=== PATIENT | male | born 1940 | race Caucasian/White ===

== ENCOUNTER 2016-10-23 20:22 | Observation (INO) | payer OTHER ==
[~2016-10-23] VITALS: Ht 177.8 cm; Wt 81.7 kg
[~2016-10-23 20:22] MED LIST: ASPIRIN325 MG PO; CICLOPIROX NAIL L8 %; DOCUSATE CALCI240 MG PO; FLONASE AL50 MCG/ACT PO; GEMFIBROZIL600 MG PO; LEVOTHYROXINE100 MCG PO; METOPROLOL SUCC25 MG PO; MIRALAX EQUIVAL17 GM PO; OXAYDO5 MG PO; PROBIOTIC; RED YEAST RICE600 MG PO; TRIAMCINOLONE A0.13; VITAMIN D-31000 UNIT PO; XANAX1 MG PO; ZETIA10 MG PO; [UNRECOGNIZED DRUG - OTHER] PO
--- NOTE | 2016-10-23 23:22 | DIAGNOSTIC IMAGING REPORT ---
PROCEDURE: XR CHEST 1 VIEW INDICATION: CONFUSION TECHNIQUE: Portable AP view (2150 hours). COMPARISON: Compared to 01/23/2016. FINDINGS: Lungs are clear. Status post coronary bypass graft. Heart and mediastinum are of normal size. Thorax is normal. IMPRESSION: 1. Status post lower artery bypass graft. 2. Otherwise negative chest.
--- NOTE | 2016-10-23 23:27 | DIAGNOSTIC IMAGING REPORT ---
PROCEDURE: CT HEAD WITHOUT CONTRAST INDICATION: MENTAL STATUS CHANGE TECHNIQUE: Noncontrast axial images with sagittal and coronal reformations. COMPARISON: Compared to a head CT and 02/02/2016. FINDINGS: Mild motion. There are mild atrophic changes. Brain and ventricles are otherwise normal. No evidence of an acute process or hemorrhage. Sinuses and mastoids are normal. IMPRESSION: 1. Negative head CT. 2. Findings discussed with Dr. Gene Mustafa at [address] scans at this facility use dose modulation, iterative reconstruction, and/or weight-based dosing when appropriate to reduce radiation dose to as low as reasonably achievable.
--- NOTE | 2016-10-23 23:43 | ED ORDER SUMMARY ---
..... Patient: PARISA YANEZ OrderSheet [facility] VisitID: [id number] [address] [place] [address] 76y, M Registration Date/Time: 10/23/2016 ORDER SHEET Weight: 81.6 kg (estimated) Allergies: Codeine, Naproxen, Niacin, OxyContin, Statins GENERAL ORDERS: CBC w Diff Urgent (21:10/23/2016 Carol MCKENZIE) (Ack 21:07 Bay) (22:09 HSoule) CMP Urgent (21:10/23/2016 Carol MCKENZIE) (Ack 21:07 Bay) (22:09 HSoule) UA-Culture if indicated Urgent (21:10/23/2016 Carol MCKENZIE) (Ack 21:07 Bay) (23:20 SRedmond) Amylase Urgent (21:10/23/2016 Carol MCKENZIE) (Ack 21:07 Bay) (22:09 HSoule) Lipase Urgent (21:10/23/2016 Carol MCKENZIE) (Ack 21:07 Bay) (22:09 HSoule) Ethyl Alcohol Urgent (21:10/23/2016 Carol MCKENZIE) (Ack 21:07 Bay) (22:09 HSoule) Urine Drug Screen Urgent (21:10/23/2016 Carol MCKENZIE) (Ack 21:07 Bay) (23:20 SRedmond) Chest 1V Urgent (21:10/23/2016 Carol MCKENZIE) (Ack 21:21 Bay) (22:38 MCampbell) Higher Education Administrator (Continuous) (21:10/23/2016 Carol MCKENZIE) (21:20 HSoule) CPK Urgent (21:10/23/2016 Carol MCKENZIE) (Ack 21:21 Bay) (22:09 HSoule) Troponin-I Urgent (21:10/23/2016 Carol MCKENZIE) (Ack 21:21 Bay) (22:09 HSoule) Oxygen (2 L/min) (NC) (21:10/23/2016 Carol MCKENZIE) (21:20 HSoule) EKG - ER Stat (21:16 10/23/2016 Carol MCKENZIE) (Ack 21:21 SRedmond) (22:09 HSoule) Pulse oximeter (21:16 10/23/2016 Carol MCKENZIE) (21:20 HSoule) CT Head wo Cont Urgent (21:23 10/23/2016 Carol MCKENZIE) (Ack 21:24 SRedmond) (22:38 MCampbell) MEDICATION ORDERS: IV FLUIDS: IV NS : initial bolus 750 mL (1000 mL/hr), then 125 mL/hr for 4h (NOW); Urgent (21:05 10/23/2016 Carol MCKENZIE) (Ack 21:19 HSoule) (21:20 HSoule) IV Saline Lock (21:16 10/23/2016 Carol MCKENZIE) (21:19 HSoule) ORDER SHEET NOTES: [Electronically signed by Patricia Fuentes (03:57 10/24/2016)] [Electronically signed by Gene Mustafa MD (08:44 10/24/2016)] [Electronically locked/signed by Patricia Fuentes (03:57 10/24/2016)]
--- NOTE | 2016-10-23 23:43 | ED ORDER SUMMARY ---
..... Patient: PARISA YANEZ OrderSheet [facility] VisitID: [id number] [address] [place] [address] 76y, M Registration Date/Time: 10/23/2016 ORDER SHEET Weight: 81.6 kg (estimated) Allergies: Codeine, Naproxen, Niacin, OxyContin, Statins GENERAL ORDERS: CBC w Diff Urgent (21:10/23/2016 Carol MCKENZIE) (Ack 21:07 Bay) (22:09 HSoule) CMP Urgent (21:10/23/2016 Carol MCKENZIE) (Ack 21:07 Bay) (22:09 HSoule) UA-Culture if indicated Urgent (21:10/23/2016 Carol MCKENZIE) (Ack 21:07 Bay) (23:20 SRedmond) Amylase Urgent (21:10/23/2016 Carol MCKENZIE) (Ack 21:07 Bay) (22:09 HSoule) Lipase Urgent (21:10/23/2016 Carol MCKENZIE) (Ack 21:07 Bay) (22:09 HSoule) Ethyl Alcohol Urgent (21:10/23/2016 Carol MCKENZIE) (Ack 21:07 Bay) (22:09 HSoule) Urine Drug Screen Urgent (21:10/23/2016 Carol MCKENZIE) (Ack 21:07 Bay) (23:20 SRedmond) Chest 1V Urgent (21:10/23/2016 Carol MCKENZIE) (Ack 21:21 Bay) (22:38 MCampbell) Biometrics Technician (Continuous) (21:10/23/2016 Carol MCKENZIE) (21:20 HSoule) CPK Urgent (21:10/23/2016 Carol MCKENZIE) (Ack 21:21 Bay) (22:09 HSoule) Troponin-I Urgent (21:10/23/2016 Carol MCKENZIE) (Ack 21:21 Bay) (22:09 HSoule) Oxygen (2 L/min) (NC) (21:10/23/2016 Carol MCKENZIE) (21:20 HSoule) EKG - ER Stat (21:16 10/23/2016 Carol MCKENZIE) (Ack 21:21 SRedmond) (22:09 HSoule) Pulse oximeter (21:16 10/23/2016 Carol MCKENZIE) (21:20 HSoule) CT Head wo Cont Urgent (21:23 10/23/2016 Carol MCKENZIE) (Ack 21:24 SRedmond) (22:38 MCampbell) MEDICATION ORDERS: IV FLUIDS: IV NS : initial bolus 750 mL (1000 mL/hr), then 125 mL/hr for 4h (NOW); Urgent (21:05 10/23/2016 Carol MCKENZIE) (Ack 21:19 HSoule) (21:20 HSoule) IV Saline Lock (21:16 10/23/2016 Carol MCKENZIE) (21:19 HSoule) ORDER SHEET NOTES: [Electronically signed by Patricia Fuentes (03:57 10/24/2016)] [Electronically signed by Gnee Mustafa MD (08:44 10/24/2016)] [Electronically locked/signed by Patricia Fuentes (03:57 10/24/2016)]
--- NOTE | 2016-10-23 23:43 | ED CLINICAL REPORT ---
Clinical Report - Physicians/Mid Levels [facility] [address] [place] [address] 10/23/2016 20:24 Patient: PARISA YANEZ Time Seen: 21:00. Arrived- By ambulance. Historian- patient, EMS personnel and spouse. HISTORY OF PRESENT ILLNESS Chief Complaint: ACCIDENTAL INGESTION. This occurred today. Toxic symptoms present in ED with nausea, drowsiness and agitation. Single drug taken- Oxycodone. Alcohol consumption recently (beer). Last drink was just prior to arrival. The symptoms are described as severe. The patient has been confused. Similar symptoms previously: Once. Recent medical care: The patient was seen recently at this facility. Seen for similar symptoms. Diagnosis: drug overdose. REVIEW OF SYSTEMS No chills, fever, sweats, calf pain or chest pain. No cough, difficulty breathing, pedal edema, palpitations or abdominal pain. No black stools, bloody stools, diarrhea, nausea or vomiting. No urinary problems. The patient has had constipation (chronically). He has had similar symptoms previously. All systems otherwise negative, except as recorded above. PAST HISTORY Problems: Contusion. Changed Mental Status. Drug Poisoning. Coronary Artery Disease. PTSD. Hypertension. Gout. Arm fracture. Additional Surgeries: CABG. Medications: Aspirin Oral (Tablet 325 mg) 1 tablet, daily. Claritin Oral (Tablet 10 mg) 1 tablet, as needed. Colchicine Oral (Tablet 0.6 mg), 2x a day as needed. Gemfibrozil Oral (Tablet 600 mg), 2x a day. Levothyroxine Sodium Oral. Metoprolol Succinate ER Oral (Tablet Extended Release 24 Hour 25 mg) 1 tablet, daily. OxyCODONE HCl Oral (Tablet 30 mg), 4x a day as needed. Red Yeast Rice Oral (Capsule 600 mg) 1 capsule, 4 x daily. Vitamin c Oral (Tablet Chewable 500 mg) 1 tablet, daily. Vitamin D Oral (Capsule 1000 unit) 1 capsule, daily. Xanax Oral (Tablet 2 mg), as needed. Zetia Oral (Tablet 10 mg) 1 tablet, daily. Allergies: Codeine. Naproxen. Niacin. OxyContin. Statins. SOCIAL HISTORY Has place to stay (apartment). FAMILY HISTORY son with bipolar disorder. ADDITIONAL NOTES The nursing notes have been reviewed. PHYSICAL EXAM Vital Signs: 10/23/2016 20:30 BP: 120/62. HR: 68. RR: 20. O2 saturation: 98%. Temp: 98 F. Pain level now: 0/10. Have been reviewed. Appearance: The patient is somnolent, is confused and appears comfortable. ENT: TM's normal. Pharynx normal. Neck: Normal inspection. Neck supple. No meningeal signs or carotid bruit. CVS: Normal heart rate and rhythm. Heart sounds normal. Respiratory: No respiratory distress. Breath sounds normal. Abdomen: Soft and nontender. No organomegaly. Back: Normal inspection. LABS, X-RAYS, AND EKG EKG: Normal EKG. Rate: 60. EKG unchanged when compared with prior EKG. (20 Apr 2016). The study has been independently viewed by me. Chest X-ray: Sternotomy wires present. CT Head: No acute changes. The study was interpreted contemporaneously by me and discussed with the radiologist. Laboratory Tests: UA-Culture if indicated: (MARKUS: 10/23/2016 22:55) ( MsgRcvd 10/23/2016 23:15) Final results Test Result Flag Units (Reference) URINE COLOR YELLOW URINE APPEARANCE CLEAR URINE GLUCOSE NEGATIVE (NEGATIVE) URINE BILIRUBIN NEGATIVE (NEGATIVE) URINE KETONE NEGATIVE (NEGATIVE) URINE SPECIFIC GRAVITY 1.020 (1.010-1.030) URINE PH 6.0 (5.0-8.0) URINE PROTEIN NEGATIVE (NEGATIVE) URINE UROBILINOGEN 0.2 EU/dL (0.2-1.0) URINE NITRITE NEGATIVE (NEGATIVE) URINE BLOOD NEGATIVE (NEGATIVE) URINE LEUK ESTERASE NEGATIVE (NEGATIVE) URINE RBC 0-1 rbc/hpf (0-1) URINE WBC RARE wbc/hpf (0-1) URINE EPITHELIAL CELLS RARE EPI/hpf (0-5) URINE BACTERIA NONE SEEN (NONE SEEN) URINE COMMENT CULT NOT INDICATED URINE CULTURES ARE SET-UP BASED ON THE FOLLOWING CRITERIA:POSITIVE NITRITEPOSITIVE LEUKOCYTE ESTERASEGREATER THAN 10 WHITE BLOOD CELLSMODERATE (2+) OR GREATER BACTERIA CBC w Diff: (MARKUS: 10/23/2016 20:40) ( [facility] 10/23/2016 21:14) Final results Test Result Flag Units (Reference) WHITE BLOOD COUNT 5.7 K/uL (4.5-11.5) RED BLOOD COUNT 4.47 L M/uL (4.50-5.90) HEMOGLOBIN 13.3 L gm/dL (13.5-17.5) HEMATOCRIT 39.9 L % (41.0-53.0) MEAN CELL VOLUME 89 fL (80-100) MEAN CORPUSCULAR HGB 30 pg (26-34) MEAN CORPUSCULAR HGB CONC 33 g/dL (31-37) RED CELL DISTRIBUTION WIDTH 14.1 % (11.6-14.8) PLATELET COUNT 176 K/uL (150-400) NEUTROPHIL % 44.1 L % (50-75) LYMPH % 39.0 % (25-40) MONO % 9.7 % (3-14) EOSINOPHIL % 6.5 H % (0-4) BASOPHIL % 0.7 % (0-2) CPK: (MARKUS: 10/23/2016 21:07) ( [facility] 10/23/2016 22:03) Final results Test Result Flag Units (Reference) CPK 236 U/L (24-260) TROPONIN I <0.05 ng/mL (0.00-1.5) TROPONIN REFERENCE RANGE:<0.1 NEGATIVE0.1-1.5 INDETERMINANT>1.5 POSITIVE Urine Drug Screen: (MARKUS: 10/23/2016 22:55) ( [facility] 10/23/2016 23:13) Final results Test Result Flag Units (Reference) AMPHETAMINE/METHAMPHETAMINE NEGATIVE (NEGATIVE) BARBITURATE NEGATIVE (NEGATIVE) BENZODIAZEPINE POSITIVE H (NEGATIVE) CANNABINOID NEGATIVE (NEGATIVE) COCAINE NEGATIVE (NEGATIVE) ECSTASY NEGATIVE (NEGATIVE) METHADONE NEGATIVE (NEGATIVE) OPIATE POSITIVE H (NEGATIVE) The urine drug screen is a qualitative screening test fordrug overdose and abuse. All screen results should beconsidered as presumptive.Drugs screened for are as follows:BenzodiazepinesCocaineAmphetamines/MetamphetaminesTHC (Tetrahydrocannabinol)OpiatesBarbituratesEcstasyMethadonePositive results are unconfirmed. For confirmation, notifythe lab for the specimen to be sent to the reference lab.All confirmations must be performed by a differentmethodology.The ingestion of natural herbal and plant productscontaining Ephedra/Ephedra metabolites can produce in urineone or more substances capable of cross reacting withamphetamine/methamphetamine immunoassays. These testsprovide a preliminary result only. A more specificalternative chemical method must be used to obtain aconfirmed analytical result. CMP: (MARKUS: 10/23/2016 20:40) ( MsgRcvd 10/23/2016 21:28) Final results Test Result Flag Units (Reference) GLUCOSE 92 mg/dL (70-110) BUN 14 mg/dL (7-18) CREATININE 1.1 mg/dL (0.6-1.3) Estimated GFR >60 mL/min Estimated GFR- >60 mL/min Note: Persistent reduction over 3 months in eGFR<60 mL/min/1.73 m2 defines CKD. Patients with eGFR values>=60 mL/min/1.73 m2 may also have CKD if evidence ofpersistent proteinuria. Additional information may be foundat www.kidney.org. SODIUM 145 mmol/L (136-145) POTASSIUM 4.3 mmol/L (3.5-5.1) CHLORIDE 108 H mmol/L (98-107) CARBON DIOXIDE 27 mmol/L (21-32) CALCIUM 9.1 mg/dL (8.5-10.1) TOTAL PROTEIN 7.1 g/dL (6.4-8.2) ALBUMIN 3.8 g/dL (3.3-5.0) BILIRUBIN, TOTAL 0.4 mg/dL (0.0-1.0) ALKALINE PHOSPHATASE 67 U/L (46-116) AST (SGOT) 20 U/L (15-37) ALT (SGPT) 20 U/L (12-78) LIPASE 70 L U/L (73-393) AMYLASE 49 U/L (25-115) ETHYL ALCOHOL <3 L mg/dL (3-10) . PROGRESS AND PROCEDURES Course of Care: Patient is stable. Discussed case with hospitalist, (Otto). Reviewed test results and need for additional work-up. Agreed upon treatment plan, need for patient follow-up and decision to place in observation. Patient/family counseled. Old medical records reviewed. Disposition: Admitted. Observation. CLINICAL IMPRESSION Accidental multi-drug overdose with alprazolam and oxycodone. Changed mental status. (Electronically signed by Gene Mustafa MD 10/24/2016 8:44)
--- NOTE | 2016-10-23 23:43 | ED NURSING NOTES ---
Clinical Report - Nurses [facility] [address] [place] [address] 10/23/2016 20:24 Patient: PARISA YANEZ TRIAGE Triage time 20:Oct 23 2016. Acuity: LEVEL 2. Chief Complaint: DRUG OVERDOSE. SEPSIS SCREEN: Sepsis Screen: negative. Negative (no infection suspected/documented). GAVINO COMA SCORE: [place] Coma Scale: 13- eyes open spontaneously (4); best verbal response- inappropriate speech (3); best motor response- obeys commands (6). --20:34 Patricia Fuentes 20:30 10/23/16. BP: 120/62. HR: 68. RR: 20. O2 saturation: 98%. Temp: 98 F (oral). Pain level now: 0/10. --20:34 Patricia Fuentes. Weight: 81.6 kg estimated. Height/Length: 70 inches Estimated. BMI: 25.8. --20:32 Patricia Fuentes. Medications Aspirin Oral (Tablet 325 mg) 1 tablet, daily. Claritin Oral (Tablet 10 mg) 1 tablet, as needed. Colchicine Oral (Tablet 0.6 mg), 2x a day as needed. Gemfibrozil Oral (Tablet 600 mg), 2x a day. Levothyroxine Sodium Oral. Metoprolol Succinate ER Oral (Tablet Extended Release 24 Hour 25 mg) 1 tablet, daily. OxyCODONE HCl Oral (Tablet 30 mg), 4x a day as needed. Red Yeast Rice Oral (Capsule 600 mg) 1 capsule, 4 x daily. Vitamin c Oral (Tablet Chewable 500 mg) 1 tablet, daily. Vitamin D Oral (Capsule 1000 unit) 1 capsule, daily. Xanax Oral (Tablet 2 mg), as needed. Zetia Oral (Tablet 10 mg) 1 tablet, daily. --20:32 Patricia Fuentes. Allergies Codeine. Naproxen. Niacin. OxyContin. --20:32 Patricia Fuentes Statins. --20:32 Patricia Fuentes. History Arrived by EMS. Historian: EMS and patient. Unaccompanied. This occurred today. ( EMS report that the patients called because the patient was acting "strange" all day and she believed he took too many of his pain medications. Patient reportedly took 7 of his 30 mg oxycodone but EMS reports the was a poor historian and it was uncertain what time and how much was taken.). PAST MEDICAL HX: Immunizations: up-to-date. SOCIAL HX: Smoker - current status unknown. No alcohol use or drug use. No infectious disease exposure. ABUSE ASSESSMENT: No report of abuse. NUTRITIONAL RISK ASSESSMENT: The nutritional risk assessment revealed no deficiencies. FUNCTIONAL ASSESSMENT: Functional assessment: no impairments noted. LEARNING NEEDS ASSESSMENT: The learning needs assessment revealed no barriers. FALL RISK ASSESSMENT: Fall risk assessment completed. Risk factors identified include patient medications and age greater than 65 years. Fall interventions initiated. Call light in reach of patient. Instructed not to get up without assistance. SKIN INTEGRITY ASSESSMENT: Skin integrity risk assessment completed. No skin integrity risk identified. --20:34 Patricia Fuentes Treatment GRANITE WORKER: BP: 134 / 74. HR: 64. RR: 16. O2 saturation: 97 %. --20:36 Patricia Fuentes. PROBLEMS: Contusion. Changed Mental Status. Abnormal Test. Drug Poisoning. Coronary Artery Disease. PTSD. Hypertension. Gout. Arm fracture. --20:32 Patricia Fuentes. ADDITIONAL SURGERIES: CABG. --20:32 Patricia Fuentes. Interventions ID band on patient. To treatment room. --20:34 Patricia Fuentes. 20:26 10/23/2016 Site #1 started via IV in the right forearm with an 20g angiocath, with aseptic technique and good blood return. Saline lock flushed with 10 mL saline. --20:36 Patricia Fuentes. PHYSICAL ASSESSMENT To room via stretcher. Patient gowned. GENERAL / NEURO / PSYCH: The patient is disoriented and confused. The patient is disoriented to place, time and situation. Speech within normal limits. Pupillary exam: Right pupil 1mm and constricted. Left pupil: 1mm and constricted. RESPIRATORY: Respirations not labored. CVS: Normal sinus rhythm noted. SKIN: Skin is warm and dry. --20:35 Patricia Fuentes. NURSING PROGRESS NOTES Oxygen administered by nasal cannula at 2 liters. sailing officer, pulse oximeter and NIBP monitor placed on patient; monitor alarms on. Patient gowned. Reassurance given to the patient. Two patient identifiers checked. Call light placed in reach. Side rails up x 1. Bed placed in lowest position. Brakes of bed on. Patient ready for evaluation- chart flagged and ED physician notified. --20:35 Patricia Fuentes 21:19 10/23/2016 Started bag #1 1000 mL IV Fluids IV NS (Saline); at 999 mL/hr over 40 minute(s) via site #1 via IV pump. Allergies verified and confirmed 5 rights. IV patency established. IV site checked: no pain, redness, or swelling. IV flushed thoroughly pre- and post-medication administration. --21:20 Patricia Fuentes ( Provider at bedside). --21:35 Patricia Fuentes 21:34 10/23/16. BP: 136/64. HR: 65. RR: 20. O2 saturation: 99% on nasal cannula at 2 liters/minute. --21:35 Patricia Fuentes EKG time: (:Oct 23 2016). EKG was ordered, performed by a tech and shown to the ED physician. --21:35 Patricia Fuentes ( Patient encouraged to provide urine sample). --21:35 Patricia Fuentes Patient transported to radiology by stretcher with tech. (22:Oct 23 2016). Patient returned from radiology by stretcher with tech. (22:Oct 23 2016). --22:09 Patricia Fuentes EKG time: (2131 PM). EKG was ordered, performed by a tech and shown to the ED physician. --22:17 Lily Cotton 22:57 10/23/16. BP: 143/69. HR: 68. RR: 12. O2 saturation: 98% on nasal cannula at 2 liters/minute. --22:58 Patricia Fuentes In/out catheterization. Reason for indwelling catheter: retention. During procedure hand hygiene observed and sterile equipment and aseptic technique used. Return of 100 mL yellow-colored clear urine. He tolerated procedure well. Patient ID band checked for patient name and birthdate: patient confirmed. Instructions provided to collect clean catch urine and patient verbalized understanding. Catheterized urine collected with return of yellow-colored clear urine; sample sent to lab for urinalysis, culture and drug screen. Specimen labeled in the presence of the patient. --22:58 Patricia Fuentes 23:51 10/23/16. BP: 138/59. HR: 69. RR: 12. O2 saturation: 99% on nasal cannula at 2 liters/minute. End tidal CO2: 35 mmHg. --23:52 Patricia Fuentes 22:20 10/23/2016 IV Fluids IV NS via IV site #1 Rate Changed: bag #1 decreased to 125 mL/hr via IV pump. IV patency established. IV site checked: no pain, redness, or swelling. IV flushed thoroughly. Confirmed 5 Rights. --00:04 Patricia Fuentes 00:35 10/24/16. BP: 141/64. HR: 70. RR: 12. O2 saturation: 96% on nasal cannula at 2 liters/minute. --00:36 Patricia Fuentes. DISPOSITION / DISCHARGE 01:00 10/24/16. Condition at departure: stable. Admitted. Transported via stretcher by Jamn. Report was given to a nurse via a phone call. Report included patient's care, treatment, medications, reviewed medication reconcilliation, and condition (including any recent changes or anticipated changes). All questions were answered. Report was acknowledged and care was transferred. (Arie FALK). Bed obtained. Patient has no belongings. --03:35 Patricia Fuentes 01:00 10/24/2016 Site #[address] upon admission; patent, no pain and no signs of infection or infiltration. Converted to saline lock and flushed with 10 mL saline; flushes easily. --03:35 Patricia Fuentes 01:00 10/24/16. --03:57 Patricia Fuentes 01:00 10/24/16. BP: 139/64. HR: 68. RR: 12. O2 saturation: 98% on nasal cannula at 2 liters/minute. Temp: 97.8 F (oral). End tidal CO2: 33 mmHg. Pain level now: 0/10. --03:57 Patricia Fuentes. Locked/Released at 10/24/2016 3:57 by Patricia Fuentes,
--- NOTE | 2016-10-24 00:31 | Progress Note ---
Subjective General Admission History and Physical Examination Patient Name: Sonny Padilla Admission Date: October 24, 2016 Primary Care Provider: Carlos Velazquez D.O. Attending Physician: Rahul Menjivar M.D. Admitting Physician: Rahul Menjivar M.D. SUBJECTIVE Historian: Patient and family Reliability: Good Chief Complaint: Confusion, mental status changes, opiate overdose History of Present Illness: The patient is a 76-year-old white male with a significant past medical history of aortic valvular disease status post aortic valve replacement, coronary disease status post CABG 4, degenerative joint disease, generalized anxiety disorder, agoraphobia, PTSD, gout, who presented to [facility] emergency department on the day of admission with complaints of mental status changes, confusion, and suspected opiate overdose. The history of present illness began on the day prior to admission when the patient apparently accidentally took 6-7 of his OxyContin tablets. There was no history of suicidal ideation or suicide attempt. He is known to be lethargic with altered mental status following this. Secondary to the above, the patient presented to [facility] emergency department for further evaluation and treatment. Evaluation was consistent with opiate overdose and the patient was admitted for observation status. PAST MEDICAL HISTORY Illnesses: 1. Coronary artery disease-status post CABG 4 2. Aortic valve disease-status post aVR 3. Degenerative joint disease 4. Generalized anxiety disorder/panic disorder/agoraphobia 5. Hypercholesterolemia 6. Chronic constipation 7. Hypothyroidism Allergies: 1. Statins 2. OxyContin 3. Niacin 4. Allopurinol 5. Fenofibrate 6. Ambien 7. Naproxen 8. Methocarbamol Medications: Xanax 1 mg by mouth 3 times a day when necessary anxiety Colchicine 0.6 mg by mouth twice a day Lopid 600 mg by mouth twice a day Toprol-XL 25 mg by mouth daily. Oxycodone 30 mg by mouth every 4-6 hours when necessary for pain maximum 5 tablets per day Red Yeast Rice Oral (Capsule 600 mg) 1 capsule, 4 x daily. Vitamin C 1000 g by mouth daily Vitamin D 1000 units by mouth daily Zetia 10 mg by mouth daily Aspirin 325 mg by mouth daily Claritin Oral (Tablet 10 mg) 1 tablet, as needed. Synthroid 0.1 mg by mouth daily Flexeril 10 mg by mouth 3 times a day when necessary for muscle spasm MiraLAX 17 g in 8 ounces water daily Nasarel 25 g nasal spray twice a day Colace 250 mg by mouth twice a day Surgery: 1. CABG 4 2. Aortic valve replacement 3. Hernia repair bilaterally 4. Right knee surgery-type unknown Injuries: 1. Back injury Hospitalizations: 1. See above FAMILY HISTORY Parents: 1. Father, Chas, , 73, gout, cancer, 2. Mother, Meeta, , 73, myocardial infarction Siblings: 1. Chas, , 73, leukemia, coronary disease 2. Female, living, age unknown, bipolar disease Children: 1. None Other significant family history: None SOCIAL HISTORY 1. Marital Status: 2. Yazdanism: Buddhist-Baptist 3. Education: College, 2 years 4. 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 Occupational health exposures: Dust, asbestos, lead, loud noises, heavy lifting HABITS 1. Tobacco: No 2. Drugs: No 3. Alcohol: No 4. Caffeine: One cup caffeine 2-3 times per week HEALTH SUPERVISION Item/Test 1. Not reviewed IMMUNIZATIONS: 1. Pneumococcal: Unknown 2. Influenza: Unknown 3. Tetanus: Unknown REVIEW OF SYSTEMS Remarkable for those things stated in the history of present illness and past medical history. Seventeen point review of system completed with the following notable findings: General: Fatigue, back pain Skin: Areas of erythema associated with gouty tophi Musculoskeletal: Back pain, joint pain, muscle aches Neurological: lethargy, confusion Physical Exam General Appearance Cooperative, No acute distress, Slightly lethargic HEENT Atraumatic, PERRLA, EOMI, Moist mucous membranes Lungs Clear to auscultation, Normal air movement Neck Supple, No JVD Cardiovascular Regular rate and rhythm, Normal S1 and S2, Grade 2/6 systolic murmur Abdomen Normal bowel sounds, Soft, No tenderness Extremities No cyanosis, No clubbing, No edema, Gouty tophi present Neurological Cranial nerves intact, Strength 5/5 x4 ext's, No lateralizing signs Psych/Mental Status Confused, Lethargic LAB Results Laboratory Tests 10/23 10/23 10/23 2255 2107 2040 Chemistry Plasma Sodium (136 - 145 mmol/L) 145 Plasma Potassium (3.5 - 5.1 mmol/L) 4.3 Plasma Chloride (98 - 107 mmol/L) 108 CO2 (Enzymatic) (21 - 32 mmol/L) 27 BUN (7 - 18 mg/dL) 14 Creatinine (0.6 - 1.3 mg/dL) 1.1 Est GFR ( Amer) (mL/min) >60 Est GFR (Non-Af Amer) (mL/min) >60 Glucose (70 - 110 mg/dL) 92 Plasma Calcium (8.5 - 10.1 mg/dL) 9.1 Total Bilirubin (0.0 - 1.0 mg/dL) 0.4 AST (15 - 37 U/L) 20 ALT (12 - 78 U/L) 20 Alkaline Phosphatase (46 - 116 U/L) 67 Creatine Kinase (24 - 260 U/L) 236 Troponin (0.00 - 1.5 ng/mL) <0.05 Total Protein (6.4 - 8.2 g/dL) 7.1 Albumin (3.3 - 5.0 g/dL) 3.8 Amylase (25 - 115 U/L) 49 Lipase (73 - 393 U/L) 70 Hematology WBC (4.5 - 11.5 K/uL) 5.7 RBC (4.50 - 5.90 M/uL) 4.47 Hgb (13.5 - 17.5 gm/dL) 13.3 Hct (41.0 - 53.0 %) 39.9 MCV (80 - 100 fL) 89 MCH (26 - 34 pg) 30 RDW (11.6 - 14.8 %) 14.1 Neut % (Auto) (50 - 75 %) 44.1 Lymph % (Auto) (25 - 40 %) 39.0 [place] % (Auto) (3 - 14 %) 9.7 Eos % (Auto) (0 - 4 %) 6.5 Baso % (Auto) (0 - 2 %) 0.7 Plt Count, EDTA (150 - 400 K/uL) 176 PUBS MCHC (31 - 37 g/dL) 33 Toxicology Urine Opiates Screen (NEGATIVE) POSITIVE Urine Methadone Screen (NEGATIVE) NEGATIVE Ur Barbiturates Screen (NEGATIVE) NEGATIVE U Amphetamin/Meth Scrn (NEGATIVE) NEGATIVE MDMA (Ecstasy) Screen (NEGATIVE) NEGATIVE U Benzodiazepines Scrn (NEGATIVE) POSITIVE Urine Cocaine Screen (NEGATIVE) NEGATIVE U Cannabinoids Screen (NEGATIVE) NEGATIVE Plasma/Serum Ethyl Alc (3 - 10 mg/dL) <3 Urines Urine Color YELLOW Urine Appearance CLEAR Urine pH (5.0 - 8.0) 6.0 Ur Specific [place] (1.010 - 1.030) 1.020 Urine Protein (NEGATIVE) NEGATIVE Urine Ketones (NEGATIVE) NEGATIVE Urine Blood (NEGATIVE) NEGATIVE Urine Nitrite (NEGATIVE) NEGATIVE Urine Bilirubin (NEGATIVE) NEGATIVE Urine Urobilinogen (0.2 - 1.0 EU/dL) 0.2 Ur Leukocyte Esterase (NEGATIVE) NEGATIVE Urine RBC (0 - 1 rbc/hpf) 0-1 Urine WBC (0 - 1 wbc/hpf) RARE Ur Epithelial Cells (0 - 5 EPI/hpf) RARE Urine Bacteria (NONE SEEN) NONE SEEN Urine Glucose (NEGATIVE) NEGATIVE Urine Comment CULT NOT INDICATED Imaging Head CT IMPRESSION: 1. Negative head CT. 2. Findings discussed with Dr. Gene Mustafa at 2320 hours. Dictated by: NINA MAURICE MD D: PERRY;10/23/162326 Chest X-Ray IMPRESSION: 1. Status post lower artery bypass graft. 2. Otherwise negative chest. Dictated by: NINA MAURICE MD D: PERRY;10/23/162321 Assessment and Plan Problem List 1. Opiate overdose Status Acute Onset Date Unknown Plan -Patient presents with unintentional opiate overdose. -Monitor, patient slightly lethargic -Telemetry, pulse oximetry, end-tidal CO2 monitoring -Encourage curtailment and use of narcotics post discharge 2. Anxiety disorder Status Chronic Onset Date Unknown Plan -Patient with history of anxiety disorder -Hold antianxiety agents this p.m. secondary to narcotic overdose -Monitor 3. Hypothyroidism Status Chronic Onset Date Unknown Plan -Patient with history of hypothyroidism. -Continue Synthroid -Check TSH in a.m. Monitor 4. Mental status change Plan -Patient presents with findings of lethargy consistent with opiate overdose. -Slightly confused with slow responses -Monitor -CT scan of head unremarkable -Most likely secondary to opiate overdose. 5. Gout Status Chronic Onset Date Unknown Plan -Patient with history of gout -Allergic to allopurinol -Unclear as to other agents she is besides colchicine -Obtain uric acid level in a.m. 6. Anemia Status Acute Onset Date Unknown Plan -Patient with history of mild anemia -Check B12, folate, iron profile -Monitor 7. Chronic pain Status Chronic Onset Date Unknown Plan -Patient with history of chronic back pain -We'll encourage curtailment of narcotic analgesics post discharge Current status: Fair, unstable Anticipated discharge date: Anticipated discharge in 24 hours Anticipated discharge placement: Home Patient care time: Time spent in chart review, patient interview, physical exam, CPOE, and care documentation: 70 minutes Visit to patient today: 2 Complexity of care: High Initial patient evaluation: Emergency department E&M Codes Admission: Obsv-Comp/High/[id number]
[2016-10-24 01:30] VITALS: BP 146/77
[2016-10-24 05:17] VITALS: BP 146/77
[2016-10-24 07:24] VITALS: BP 143/74
--- NOTE | 2016-10-24 07:28 | Progress Note ---
Subjective General ADVANCED CARE PLAN History of Present Illness The patient is a 76-year-old white male with a significant past medical history of aortic valvular disease status post aortic valve replacement, coronary disease status post CABG 4, degenerative joint disease, generalized anxiety disorder, agoraphobia, PTSD, gout, who presented to [facility] emergency department on the day of admission with complaints of mental status changes, confusion, and suspected opiate overdose. For other history present illness, past medical history, family history, social history, review of systems, and admission physical examination please see the patient's history and physical examination and ER visit note in the patient's medical record. A discussion was undertaken with the patient regarding previous advance care arrangements/decisions. The following advanced directives were noted by the patient and discussed with me at the time of admission. ADVANCED DIRECTIVES: 1. Living well: Yes 2. POLST: Yes 3. CODE STATUS: FULL CODE 4. Durable Power Flight Nurse Health care: Yes 5. Donor card: Yes The patient has expressed interest in pursuing full resuscitative efforts in the event of a cardiopulmonary arrest The patient's wishes were documented in the chart and orders regarding the patient's wishes entered into the [employer] CPOE system. The "Advance Care Plan Document" was not distributed to patient to discuss with his family. Less than 30 minutes was spent in performing the above tasks and documentation of the patient's advanced care plan.
--- NOTE | 2016-10-24 07:28 | Progress Note ---
Subjective General ADVANCED CARE PLAN History of Present Illness The patient is a 76-year-old white male with a significant past medical history of aortic valvular disease status post aortic valve replacement, coronary disease status post CABG 4, degenerative joint disease, generalized anxiety disorder, agoraphobia, PTSD, gout, who presented to [facility] emergency department on the day of admission with complaints of mental status changes, confusion, and suspected opiate overdose. For other history present illness, past medical history, family history, social history, review of systems, and admission physical examination please see the patient's history and physical examination and ER visit note in the patient's medical record. A discussion was undertaken with the patient regarding previous advance care arrangements/decisions. The following advanced directives were noted by the patient and discussed with me at the time of admission. ADVANCED DIRECTIVES: 1. Living well: Yes 2. POLST: Yes 3. CODE STATUS: FULL CODE 4. Durable Power Clean Room Technician Health care: Yes 5. Donor card: Yes The patient has expressed interest in pursuing full resuscitative efforts in the event of a cardiopulmonary arrest The patient's wishes were documented in the chart and orders regarding the patient's wishes entered into the [employer] CPOE system. The "Advance Care Plan Document" was not distributed to patient to discuss with his family. Less than 30 minutes was spent in performing the above tasks and documentation of the patient's advanced care plan.
--- NOTE | 2016-10-24 08:45 | ED MED RECONCILIATION SUMMARY ---
Patient: PARISA YANEZ Medication Reconciliation Report [facility] VisitID: [id number] [address] [place] [address] 76y, M Registration Date/Time: 10/23/2016 Weight: 81.6 kg Height/Length: 70 in. BMI: 25.8 ALLERGIES: Codeine, Naproxen, Niacin, OxyContin, Statins The patient's Home Medications are listed below: THE FOLLOWING MEDICATIONS NEED TO BE RECONCILED: Aspirin Oral (325 mg) 1 tablet, daily Claritin Oral (10 mg) 1 tablet Colchicine Oral (0.6 mg), 2x a day Gemfibrozil Oral (600 mg), 2x a day Levothyroxine Sodium Oral Metoprolol Succinate ER Oral (25 mg) 1 tablet, daily OxyCODONE HCl Oral (30 mg), 4x a day Red Yeast Rice Oral (600 mg) 1 capsule, 4 x daily Vitamin c Oral (500 mg) 1 tablet, daily Vitamin D Oral (1000 unit) 1 capsule, daily Xanax Oral (2 mg) Zetia Oral (10 mg) 1 tablet, daily The source(s) of the original Home Medication information: Not obtained. The following Medications were given to the patient in the Emergency Department: IV NS IV Fluids bolus 0, then 999 mL/hr, administered: 10/23/2016 9:19:00 PM The following Medications were prescribed to the patient: None.
--- NOTE | 2016-10-24 08:45 | ED DISCHARGE INSTRUCTIONS ---
Patient: PARISA YANEZ General Instructions [facility] VisitID: [id number] [place] [address] 76y, M Registration Date/Time: 10/23/2016 Accidental multi-drug overdose with alprazolam and oxycodone. Changed mental status. ADDITIONAL INFORMATION Accidental Ingestion:Non-Toxic [Adult] You have been evaluated and treated for taking too much of a medicine or swallowing a chemical product. There is no sign of toxic effect at this time. It is very unlikely that any new symptoms will appear. As a safeguard, you must be alert for symptoms during the next 24 hours (see below). The exact symptom will depend on what was swallowed. Home Care: If LIQUID CHARCOAL was given to neutralize what was swallowed, it will cause a black color to the stools for 1-2 days. Usually, a laxative (sorbitol) is given with charcoal to speed the removal of any toxins from the intestinal tract. This may cause diarrhea for up to 24 hours. If no laxative was given with charcoal, you may get constipated. If this occurs, you may take an jrqo-yjn-nxrpwrg laxative such as Dulcolax pills or suppository. Prevention: Keep medicines, pesticides, and other household chemicals in their original containers. Clearly kailyn all harmful products if a different bottle is used. Follow Up with your doctor if all symptoms do not resolve within 24 hours or if constipation is not relieved by one or two doses of laxatives. Get Prompt Medical Attention if any of the following occur: Excess drowsiness or inability to be awakened Rapid heart beat, shakiness or seizure Fast breathing (over 25 breaths/minute) or slow breathing (less than 8 breaths/minute) Feeling shortness of breath Fever of 100.4F (38C) or higher, or as directed by your healthcare provider Vomiting or diarrhea for more than 24 hours Blood in stools or vomit (black or red color) Chest or abdominal pain Dizziness, weakness or fainting Opiate Overdose You have been treated for an overdose of opiates (such as a prescription pain medicine or heroin).Taking too much opiates is dangerous because they cause breathing to slow and possibly stop.If you stop breathing for more than 2-3 minutes, your heart will stop and you will . If your overdose was severe, you may have received an antidote called Narcan (naloxone). The antidote effect lasts for about 1-2 hours.If the opiate has not left your system by the time the Narcan wears off your symptoms may return (such as drowsiness and slow breathing). If you were addicted and physically dependent on opiates, then Narcan may cause withdrawal symptoms to appear immediately.These may consist of body aches, diarrhea, abdominal cramps, nausea, vomiting, runny nose, sneezing, sweating, yawning, restlessness, irritability, or trembling.These symptoms will go away as the Narcan wears off. Home Care Rest for the next [address] or operate any vehicle or dangerous equipment until all narcotic effects have worn off and you are no longer feeling sleepy or drowsy. If you were previously prescribed narcotic medicines for pain, do not take any more of this medicine for the next 6-8 hours, unless told otherwise. If narcotics or other drugs were swallowed, you may have been given liquid charcoal to neutralize those drugs.The charcoal may cause nausea and vomiting over the next few hours. It will also cause a black color to your stools for the next 1-2 days. Usually, a laxative is given with charcoal to speed the removal of any toxins from the intestinal tract. This may cause diarrhea for up to 24 hours. If no laxative was given, there may be a tendency toward constipation. If this occurs, you may take an lbrc-nia-ocigvoc laxative such as Dulcolax pills or suppository, or Milk of Magnesia. Follow Up with your doctor if all symptoms do not resolve within 24 hours or if constipation is not relieved after two doses of laxatives.If your overdose was related to a drug addiction, seek drug counseling. Consider a drug treatment program to help you break your habit. Return Promptly or contact your doctor if any of the following occur: Excess drowsiness or inability to be awakened Slow breathing under 8 breaths per minute Shortness of breath or cough with colored sputum Fever over 100.4F (38.0C) oral Redness, swelling or tenderness at the heroin injection site Feeling that you might harm yourself or another You have been given the following additional information: Overdose, Accidental (Adult) Overdose, Opiate (Electronically signed by Gene Mustafa MD 10/24/2016 8:44)
--- NOTE | 2016-10-24 08:45 | ED MAR SUMMARY ---
..... Medication Administration Record [facility] [address] [place] [address] Patient: PARISA YANEZ Visit ID: [id number] 76y, M Weight: 81.6 kg Height/Length: 70 in BMI: 25.8 ALLERGIES: Codeine, Naproxen, Niacin, OxyContin, Statins Start 21:19 10/23/2016 Patricia Fuentes, Medication Administered: IV NS (SALINE), Dose: IV Fluids over 40 minute(s), Rate: 999 mL/hr, Dispensed: 1000 mL bag, Site: #1 right forearm. Medication Ordered: IV NS : initial bolus 750 mL (1000 mL/hr), then 125 mL/hr for 4h (NOW); Urgent.
--- NOTE | 2016-10-24 08:45 | ED MED RECONCILIATION SUMMARY ---
Patient: PARISA YANEZ Medication Reconciliation Report [facility] VisitID: [id number] [address] [place] [address] 76y, M Registration Date/Time: 10/23/2016 Weight: 81.6 kg Height/Length: 70 in. BMI: 25.8 ALLERGIES: Codeine, Naproxen, Niacin, OxyContin, Statins The patient's Home Medications are listed below: THE FOLLOWING MEDICATIONS NEED TO BE RECONCILED: Aspirin Oral (325 mg) 1 tablet, daily Claritin Oral (10 mg) 1 tablet Colchicine Oral (0.6 mg), 2x a day Gemfibrozil Oral (600 mg), 2x a day Levothyroxine Sodium Oral Metoprolol Succinate ER Oral (25 mg) 1 tablet, daily OxyCODONE HCl Oral (30 mg), 4x a day Red Yeast Rice Oral (600 mg) 1 capsule, 4 x daily Vitamin c Oral (500 mg) 1 tablet, daily Vitamin D Oral (1000 unit) 1 capsule, daily Xanax Oral (2 mg) Zetia Oral (10 mg) 1 tablet, daily The source(s) of the original Home Medication information: Not obtained. The following Medications were given to the patient in the Emergency Department: IV NS IV Fluids bolus 0, then 999 mL/hr, administered: 10/23/2016 9:19:00 PM The following Medications were prescribed to the patient: None.
--- NOTE | 2016-10-24 08:45 | ED MAR SUMMARY ---
..... Medication Administration Record [facility] [address] [place] [address] Patient: PARISA YANEZ Visit ID: [id number] 76y, M Weight: 81.6 kg Height/Length: 70 in BMI: 25.8 ALLERGIES: Codeine, Naproxen, Niacin, OxyContin, Statins Start 21:19 10/23/2016 Patricia uFentes, Medication Administered: IV NS (SALINE), Dose: IV Fluids over 40 minute(s), Rate: 999 mL/hr, Dispensed: 1000 mL bag, Site: #1 right forearm. Medication Ordered: IV NS : initial bolus 750 mL (1000 mL/hr), then 125 mL/hr for 4h (NOW); Urgent.
[2016-10-24 11:07] VITALS: BP 147/63
[2016-10-24 14:02] VITALS: BP 141/68
--- NOTE | 2016-10-24 15:20 | Provider's Discharge Care Plan ---
Problem, Goal, Plan Problem List 1. Hypothyroidism Instructions: - no changes to your medication 2. Opiate overdose Instructions: - avoid taking opiate, additionally if you do take your xanax do not drink with it
--- NOTE | 2016-10-24 15:35 | Discharge Summary ---
Discharge Summary Report Admit Date 10/23/16 Discharge Date 10/24/16 Admission Diagnosis altered mental status Discharge Diagnosis opioid overdose Brief History please refer to H&P Hospital Course Patient was admitted for sedation and altered mental status. Patient tox screen was positive for opioids and benzodizapenes. Patients respiratory function was monitored and patient was observed for possible other factors. When none were seen patient was evaluated for any organic change that was occuring, however the patient has normal thyroid function, normal uric acid, and anemia work up. Patient was monitored throughout the day and patient had normal baseline acitvity with episodes of sedation. Patient did not have any evidence of neurological dysfunction. Patient will be discharged. He will follow up with his new pmd. He will not take any opioids and take xanax only if he has symptoms of anxiety. Patient willl otherwise resume all his other home medication. General Appearance Alert, Oriented X3, No acute distress HEENT PERRLA, Mucous membran moist/pink Lungs Normal air movement Cardiovascular Normal S1, Normal S2 Abdomen Soft, No tenderness Pelvic No masses Skin No Breakdown Neurological Normal speech, Normal tone, Sensation intact Lab/Imaging Laboratory Tests 10/23 10/23 10/23 10/24 2040 2107 2255 0605 Chemistry Plasma Sodium (136 - 145 mmol/L) 145 Plasma Potassium (3.5 - 5.1 mmol/L) 4.3 Plasma Chloride (98 - 107 mmol/L) 108 CO2 (Enzymatic) (21 - 32 mmol/L) 27 BUN (7 - 18 mg/dL) 14 Creatinine (0.6 - 1.3 mg/dL) 1.1 Est GFR ( Amer) (mL/min) >60 Est GFR (Non-Af Amer) (mL/min) >60 Glucose (70 - 110 mg/dL) 92 Plasma Calcium (8.5 - 10.1 mg/dL) 9.1 Total Bilirubin (0.0 - 1.0 mg/dL) 0.4 AST (15 - 37 U/L) 20 ALT (12 - 78 U/L) 20 Alkaline Phosphatase (46 - 116 U/L) 67 Creatine Kinase (24 - 260 U/L) 236 Troponin (0.00 - 1.5 ng/mL) <0.05 Total Protein (6.4 - 8.2 g/dL) 7.1 Albumin (3.3 - 5.0 g/dL) 3.8 Amylase (25 - 115 U/L) 49 Lipase (73 - 393 U/L) 70 Vitamin B12 (211 - 946 pg/mL) 225 Folate (>3.0 ng/mL) 12.7 Hematology WBC (4.5 - 11.5 K/uL) 5.7 RBC (4.50 - 5.90 M/uL) 4.47 Hgb (13.5 - 17.5 gm/dL) 13.3 Hct (41.0 - 53.0 %) 39.9 MCV (80 - 100 fL) 89 MCH (26 - 34 pg) 30 RDW (11.6 - 14.8 %) 14.1 Neut % (Auto) (50 - 75 %) 44.1 Lymph % (Auto) (25 - 40 %) 39.0 [place] % (Auto) (3 - 14 %) 9.7 Eos % (Auto) (0 - 4 %) 6.5 Baso % (Auto) (0 - 2 %) 0.7 Plt Count, EDTA (150 - 400 K/uL) 176 PUBS MCHC (31 - 37 g/dL) 33 Toxicology Urine Opiates Screen (NEGATIVE) POSITIVE Urine Methadone Screen (NEGATIVE) NEGATIVE Ur Barbiturates Screen (NEGATIVE) NEGATIVE U Amphetamin/Meth Scrn (NEGATIVE) NEGATIVE MDMA (Ecstasy) Screen (NEGATIVE) NEGATIVE U Benzodiazepines Scrn (NEGATIVE) POSITIVE Urine Cocaine Screen (NEGATIVE) NEGATIVE U Cannabinoids Screen (NEGATIVE) NEGATIVE Plasma/Serum Ethyl Alc (3 - 10 mg/dL) <3 Urines Urine Color YELLOW Urine Appearance CLEAR Urine pH (5.0 - 8.0) 6.0 Ur Specific [place] (1.010 - 1.030) 1.020 Urine Protein (NEGATIVE) NEGATIVE Urine Ketones (NEGATIVE) NEGATIVE Urine Blood (NEGATIVE) NEGATIVE Urine Nitrite (NEGATIVE) NEGATIVE Urine Bilirubin (NEGATIVE) NEGATIVE Urine Urobilinogen (0.2 - 1.0 EU/dL) 0.2 Ur Leukocyte Esterase (NEGATIVE) NEGATIVE Urine RBC (0 - 1 rbc/hpf) 0-1 Urine WBC (0 - 1 wbc/hpf) RARE Ur Epithelial Cells (0 - 5 EPI/hpf) RARE Urine Bacteria (NONE SEEN) NONE SEEN Urine Glucose (NEGATIVE) NEGATIVE Urine Comment CULT NOT INDICATED 10/24 10/24 10/24 0605 0605 0605 Chemistry Uric Acid (2.6 - 7.2 mg/dL) 6.7 Iron (35 - 150 ug/dL) 69 TIBC (260 - 445 ug/dL) 281 Iron Saturation (15 - 50 %) 25 TSH 3rd Generation (0.30 - 3.74 uIU/mL) 2.990 Discharge Instructions/Meds - avoid opioids unless cleared by your new pmd - do not mix alcohol with your medication - resume all your other home medications
== END 2016-10-24 15:55 | disposition home or self-care (01) ==
LOC: ED SRH 20:22 → TRANS SRH 23:51 → ACUTE2 SRH 10-24 01:02
PROVIDERS: ADMIT Internal Medicine
DX: T40.2X1A Poisoning by other opioids, accidental (unintentional), initial encounter (principal); R41.0 Disorientation, unspecified; F41.1 Generalized anxiety disorder; F40.01 Agoraphobia with panic disorder; F43.10 Post-traumatic stress disorder, unspecified; G89.29 Other chronic pain; M54.9 Dorsalgia, unspecified; E03.9 Hypothyroidism, unspecified; D64.9 Anemia, unspecified
CPT/HCPCS: 29230; 29251; 90004; 90100; 90616; 91504; 91505; 92010; 92235; 92530; 92610; 92668; 92670; 92760; 92761; 92762; 92763; 92764; 92765; 92766; 92767; 92860; 93140; 95059

== ENCOUNTER 2016-12-20 16:49 | Emergency (ER) | payer OTHER ==
--- NOTE | 2016-12-20 17:19 | ED CLINICAL REPORT ---
Clinical Report - Physicians/Mid Levels [facility] [address] [place] [address] 12/20/2016 16:50 Patient: PARISA YANEZ Time Seen: 1655. Arrived- By private vehicle. Historian- patient. HISTORY OF PRESENT ILLNESS Chief Complaint: BLEEDING FROM EAR left. Modifying factors. Not worsened by anything. Not relieved by anything. This started today. It was abrupt in onset and has been constant but is gone now. Is now gone. Onset during ear cleaning. Location- left ear. The patient has not had pain. The patient has had ear trauma (cleaned ears today). No recent barotrauma or tinnitus. (no fever). Similar symptoms previously: None. Recent medical care: Not recently seen/assessed. REVIEW OF SYSTEMS No fever, difficulty breathing, chest pain, headache or nausea. No vomiting or skin rash. All systems otherwise negative, except as recorded above. PAST HISTORY See nurses notes. Medications: Colace Oral. Zetia Oral (Tablet 10 mg) 1 tablet. Red Yeast Rice Oral. Flunisolide Nasal. Nitroglycerin Sublingual. MiraLax Oral. Ascorbic Acid Oral. Aspirin Oral (Tablet 325 mg) 1 tablet, daily. Metoprolol Succinate ER Oral (Tablet Extended Release 24 Hour 25 mg) 1 tablet, daily. Cholecalciferol Oral. Colchicine Oral 0.6 mg. Gemfibrozil Oral 600 mg. Levothyroxine Sodium Oral 100 mcg. Naloxone HCl Injection 1 spray. OxyCODONE HCl Oral 30 mg, 4x a day. ALPRAZolam Oral 1 mg, 3x a day. Allergies: Allopurinol. Codeine. Fenofibrate. Monosodium Glutamate. Naproxen. Niacin. OxyContin. Robaxin. Statins. Uloric. Zolpidem. SOCIAL HISTORY Never smoker. Not exposed to second-hand smoke at home. No alcohol use or drug use. No recent travel. Is a local resident. ADDITIONAL NOTES The nursing notes have been reviewed. PHYSICAL EXAM Vital Signs: 12/20/2016 16:58 BP: 129/65. HR: 58. RR: 14. O2 saturation: 98%. Temp: 97.5 F. Pain level now: 0/10. Appearance: Alert. No acute distress. Eyes: Eyes normal inspection. (Conjunctiva are pink). ENT: (tympanic membranes are normal bilaterally with normal architecture and normal cone of light. The left external auditory canal has dried blood appears to be recent. No active bleeding. No foreign body. No signs of infection. Right external auditory canal is atraumatic and normal appearance. No signs of infection. No erythema. Nopurulent discharge. No pain with palpation of the tragus. No proptosis of the ear. No overlying cellulitis of the mastoid process. No mastoid tenderness.). Nose: Nose normal. Neck: Normal inspection. Neck supple. CVS: Normal heart rate and rhythm. Heart sounds normal. Respiratory: No respiratory distress. Breath sounds normal. Abdomen: Soft and nontender. : Normal genitalia. Skin: Skin warm and dry. Normal skin color. No rash. Normal skin turgor. No pallor. PROGRESS AND PROCEDURES Course of Care: the patient is a pleasant 76-year-old male presenting for reduction of left-sided ear bleeding. Patient with recent trauma from ear cleaning. Recommended patient no longer using Q-tips orrigid instrument since the year for cleaning. Recommended other [id number] measures to clean the ear. No signs of bleeding at this time. No signs of infection. Bleeding that was there patient in minimal. Do not fill workup needed for hemoglobin and hematocrit at this time. No signs of anemia at this time. Vital signs are unremarkable. I discussion with the patient in regards to ear cleaning as well as his workup in the emergency department and diagnosis, home care, follow-up, and return precautions, in particular wound infection precautions. All questions have been answered. The patient expressed understanding of these instructions and was agreeable to them. Patient is accompanied by caregiver. Information will be passed on through the patient's caregiveras well. Disposition: Discharged. Condition: good. CLINICAL IMPRESSION Single superficial abrasion. (left ear canal). Acute seasonal allergic rhinitis. INSTRUCTIONS Warnings: GENERAL WARNINGS: Return or contact your physician immediately if your condition worsens or changes unexpectedly, if not improving as expected, or if other problems arise. Specifically return if pain, vomiting, bleeding, breathing difficulty or fever. Your Current Medications: CONTINUE TAKING THE FOLLOWING MEDICATIONS: ALPRAZolam Oral : 1 mg 3x a day. Ascorbic Acid Oral. Aspirin Oral : Tablet 325 mg, 1 tablet daily. Cholecalciferol Oral. Colace Oral. Colchicine Oral : 0.6 mg. Flunisolide Nasal. Gemfibrozil Oral : 600 mg. Levothyroxine Sodium Oral : 100 mcg. Metoprolol Succinate ER Oral : Tablet Extended Release 24 Hour 25 mg, 1 tablet daily. MiraLax Oral. Naloxone HCl Injection : 1 spray. Nitroglycerin Sublingual. OxyCODONE HCl Oral : 30 mg 4x a day. Red Yeast Rice Oral. Zetia Oral : Tablet 10 mg, 1 tablet. Prescription Medications: Hydroxyzine 50 mg: take 1 orally every 8 hours. Dispense thirty (30). No refill. (as needed for allergy symptoms) OTC Medications: Claritin (available over the counter): take according to label instructions. Follow-up: Return to the emergency department as needed. Follow up with your doctor in three days. Reason for referral: recheck today's concerns. Summary of care provided to patient via paper. Screening today revealed the patient's blood pressure to be in the normal range. The patient should follow up with a primary care provider for blood pressure management. Understanding of the discharge instructions verbalized by patient. (Electronically signed by Carlos Lerma Dr. 12/23/2016 9:33)
--- NOTE | 2016-12-20 17:19 | ED NURSING NOTES ---
Clinical Report - Nurses [facility] [address] [place] [address] 12/20/2016 16:50 Patient: PARISA YANEZ TRIAGE Triage time 16:58 Tobi 2016. Acuity: LEVEL 5. Chief Complaint: SINUS CONGESTION and (Left ear bleeding). 17:11 12/20/16. Alert. No acute distress. SEPSIS SCREEN: Sepsis Screen. Negative (no infection suspected/documented). --17:11 Mary Brock 16:58 12/20/16. BP: 129/65. HR: 58. RR: 14. O2 saturation: 98%. Temp: 97.5 F. Pain level now: 0/10. --17:11 Mary Brock. Weight: 78 kg stated. Height/Length: 75 inches Measured. BMI: 21.5. --17:10 Mary Brock. Medications ALPRAZolam Oral 1 mg, 3x a day. --17:05 Mary Brock OxyCODONE HCl Oral 30 mg, 4x a day. --17:05 Mary Brock Naloxone HCl Injection 1 spray. --17:06 Mary Brock Levothyroxine Sodium Oral 100 mcg. --17:06 Mary Brock Gemfibrozil Oral 600 mg. --17:06 Mary Brock Colchicine Oral 0.6 mg. --17:06 Mary Brock Cholecalciferol Oral. --17:06 Mary Brock Aspirin Oral (Tablet 325 mg) 1 tablet, daily. Metoprolol Succinate ER Oral (Tablet Extended Release 24 Hour 25 mg) 1 tablet, daily. --17:07 Mary Brock Ascorbic Acid Oral. --17:08 Mary Brock MiraLax Oral. --17:08 Mary Brock Nitroglycerin Sublingual. --17:08 Mary Brock Flunisolide Nasal. --17:08 Mary Brock Red Yeast Rice Oral. --17:08 Mary Brock Zetia Oral (Tablet 10 mg) 1 tablet. --17:09 Mary Brock Colace Oral. --17:09 Mary Brock. Medication/allergy information source: the patient. --17:11 Mary Brock. Allergies Codeine. Naproxen. Niacin. OxyContin. Statins. --17:03 Mary Brock Allopurinol. --17:03 Mary Brock Fenofibrate. --17:03 Mary Brock Robaxin. --17:04 Mary Brock Monosodium Glutamate. --17:04 Mary Brock Uloric. --17:04 Mary Brock Zolpidem. --17:04 Mary Brock. History Arrived by private vehicle. Historian: patient. Accompanied by (Domestic Partner, Etc). This started yesterday. ( Pt reports bleeding from L ear. Reports recent sinus infection. Never has happened before. Cleaned ear with Q-tip yesterday.). He has had mild left-sided ear drainage (bloody). No headache. 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 PAST MEDICAL HX: Immunizations: up-to-date. SOCIAL HX: Former smoker, end date 1976. No alcohol use or drug use. FALL RISK ASSESSMENT: Fall risk assessment completed. No fall risk identified. NUTRITIONAL RISK ASSESSMENT: The nutritional risk assessment revealed no deficiencies. FUNCTIONAL ASSESSMENT: Functional assessment: no impairments noted. LEARNING NEEDS ASSESSMENT: The learning needs assessment revealed no barriers. SKIN INTEGRITY ASSESSMENT: Skin integrity risk assessment completed. No skin integrity risk identified. --17:11 Mary Brock. PROBLEMS: Pulmonary Hypertension. Aortic root dilatation. Contusion. Changed Mental Status. Abnormal Test. Drug Poisoning. Coronary Artery Disease. PTSD. Hypertension. Gout. Arm fracture. --17:10 Mary Brock. ADDITIONAL SURGERIES: CABG. --17:10 Mary Brock. Assessment The patient states feels the same. --17:11 Mary Brock. Interventions ID band on patient. --17:11 Mary Brock. PHYSICAL ASSESSMENT 17:11 12/20/16. Ambulatory to room. GENERAL / NEURO / PSYCH: Alert. Appears in no acute distress. HEENT: No facial asymmetry noted. Pupils equal, round and reactive to light. Right ear within normal limits. Left ear within normal limits. RESPIRATORY: Respirations not labored. CVS: Capillary refill less than 2 seconds. SKIN: Skin is warm and dry. --17:11 Mary Brock. NURSING PROGRESS NOTES 17:12 12/20/16. The plan of care for this patient has been created. Head of bed elevated. Reassurance given. Two patient identifiers checked. Call light placed in reach. Side rails up x 1. Bed placed in lowest position. Brakes of bed on. Patient ready for evaluation- chart flagged and ED physician notified. --17:12 Mary Brock. DISPOSITION / DISCHARGE 17:25 12/20/16. Departure time: 17:Dec 20 2016. Condition at departure: unchanged. The goals identified in the patient's plan of care were met. No learning barriers present. Discharge instructions provided and reviewed with the patient and family. Reviewed warnings. Reviewed medication(s) (Claritan, Hydroxyzine). Treatments reviewed. Reviewed referral to a primary care physician (F/u in 3 days). Patient and family verbalized understanding. Written instructions provided in [place]. The patient was discharged by the physician. He was discharged home and accompanied by family. He left the Emergency Department ambulatory and via private vehicle. Family member driving. FALL RISK ASSESSMENT: Fall risk assessment completed. No fall risk identified. --17:25 Mary Brock 17:24 12/20/16. BP: deferred. HR: deferred. RR: deferred. O2 saturation: deferred. Temp: deferred. Pain level now deferred. --17:25 Mary Brock. Locked/Released at 12/20/2016 18:17 by Mary Brock,
--- NOTE | 2016-12-20 17:19 | ED NURSING NOTES ---
Clinical Report - Nurses [facility] [address] [place] [address] 12/20/2016 16:50 Patient: PARISA YANEZ TRIAGE Triage time 16:58 Tobi 2016. Acuity: LEVEL 5. Chief Complaint: SINUS CONGESTION and (Left ear bleeding). 17:11 12/20/16. Alert. No acute distress. SEPSIS SCREEN: Sepsis Screen. Negative (no infection suspected/documented). --17:11 Mary Brock 16:58 12/20/16. BP: 129/65. HR: 58. RR: 14. O2 saturation: 98%. Temp: 97.5 F. Pain level now: 0/10. --17:11 Mayr Brock. Weight: 78 kg stated. Height/Length: 75 inches Measured. BMI: 21.5. --17:10 Mary Brock. Medications ALPRAZolam Oral 1 mg, 3x a day. --17:05 Mary Brock OxyCODONE HCl Oral 30 mg, 4x a day. --17:05 Mary Brock Naloxone HCl Injection 1 spray. --17:06 Mary Brock Levothyroxine Sodium Oral 100 mcg. --17:06 Mayr Brock Gemfibrozil Oral 600 mg. --17:06 Mary Brock Colchicine Oral 0.6 mg. --17:06 Mary Brock Cholecalciferol Oral. --17:06 Mary Brock Aspirin Oral (Tablet 325 mg) 1 tablet, daily. Metoprolol Succinate ER Oral (Tablet Extended Release 24 Hour 25 mg) 1 tablet, daily. --17:07 Mary Brock Ascorbic Acid Oral. --17:08 Mary Brock MiraLax Oral. --17:08 Mary Brock Nitroglycerin Sublingual. --17:08 Mary Brock Flunisolide Nasal. --17:08 Mary Brock Red Yeast Rice Oral. --17:08 Mary Brock Zetia Oral (Tablet 10 mg) 1 tablet. --17:09 Mary Brock Colace Oral. --17:09 Mary Brock. Medication/allergy information source: the patient. --17:11 Mary Brock. Allergies Codeine. Naproxen. Niacin. OxyContin. Statins. --17:03 Mary Brock Allopurinol. --17:03 Mary Brock Fenofibrate. --17:03 Mary Brock Robaxin. --17:04 Mary Brock Monosodium Glutamate. --17:04 Mary Brock Uloric. --17:04 Mary Brock Zolpidem. --17:04 Mary Brock. History Arrived by private vehicle. Historian: patient. Accompanied by (Domestic Partner, Etc). This started yesterday. ( Pt reports bleeding from L ear. Reports recent sinus infection. Never has happened before. Cleaned ear with Q-tip yesterday.). He has had mild left-sided ear drainage (bloody). No headache. 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 PAST MEDICAL HX: Immunizations: up-to-date. SOCIAL HX: Former smoker, end date 1976. No alcohol use or drug use. FALL RISK ASSESSMENT: Fall risk assessment completed. No fall risk identified. NUTRITIONAL RISK ASSESSMENT: The nutritional risk assessment revealed no deficiencies. FUNCTIONAL ASSESSMENT: Functional assessment: no impairments noted. LEARNING NEEDS ASSESSMENT: The learning needs assessment revealed no barriers. SKIN INTEGRITY ASSESSMENT: Skin integrity risk assessment completed. No skin integrity risk identified. --17:11 Mary Brock. PROBLEMS: Pulmonary Hypertension. Aortic root dilatation. Contusion. Changed Mental Status. Abnormal Test. Drug Poisoning. Coronary Artery Disease. PTSD. Hypertension. Gout. Arm fracture. --17:10 Mary Brock. ADDITIONAL SURGERIES: CABG. --17:10 Mary Brock. Assessment The patient states feels the same. --17:11 Mary Brock. Interventions ID band on patient. --17:11 Mary Brock. PHYSICAL ASSESSMENT 17:11 12/20/16. Ambulatory to room. GENERAL / NEURO / PSYCH: Alert. Appears in no acute distress. HEENT: No facial asymmetry noted. Pupils equal, round and reactive to light. Right ear within normal limits. Left ear within normal limits. RESPIRATORY: Respirations not labored. CVS: Capillary refill less than 2 seconds. SKIN: Skin is warm and dry. --17:11 Mary Brock. NURSING PROGRESS NOTES 17:12 12/20/16. The plan of care for this patient has been created. Head of bed elevated. Reassurance given. Two patient identifiers checked. Call light placed in reach. Side rails up x 1. Bed placed in lowest position. Brakes of bed on. Patient ready for evaluation- chart flagged and ED physician notified. --17:12 Mary Brock. DISPOSITION / DISCHARGE 17:25 12/20/16. Departure time: 17:Dec 20 2016. Condition at departure: unchanged. The goals identified in the patient's plan of care were met. No learning barriers present. Discharge instructions provided and reviewed with the patient and family. Reviewed warnings. Reviewed medication(s) (Claritan, Hydroxyzine). Treatments reviewed. Reviewed referral to a primary care physician (F/u in 3 days). Patient and family verbalized understanding. Written instructions provided in [place]. The patient was discharged by the physician. He was discharged home and accompanied by family. He left the Emergency Department ambulatory and via private vehicle. Family member driving. FALL RISK ASSESSMENT: Fall risk assessment completed. No fall risk identified. --17:25 Mary Brock 17:24 12/20/16. BP: deferred. HR: deferred. RR: deferred. O2 saturation: deferred. Temp: deferred. Pain level now deferred. --17:25 Mary Brock. Locked/Released at 12/20/2016 18:17 by Mary Brock,
--- NOTE | 2016-12-23 09:34 | ED MAR SUMMARY ---
..... Medication Administration Record [facility] [address] [place] [id number] Patient: PARISA YANEZ Visit ID: [id number], M Weight: 78.0 kg Height/Length: 75 in BMI: 21.5 ALLERGIES: Zolpidem, Uloric, Monosodium Glutamate, Robaxin, Fenofibrate, Allopurinol, Codeine, Naproxen, Niacin, OxyContin, Statins
--- NOTE | 2016-12-23 09:34 | ED DISCHARGE INSTRUCTIONS ---
Patient: PARISA YANEZ General Instructions [facility] VisitID: [id number] [place] [address] 76y, M Registration Date/Time: 12/20/2016 Single superficial abrasion. (left ear canal). Acute seasonal allergic rhinitis. INSTRUCTIONS Warnings: GENERAL WARNINGS: Return or contact your physician immediately if your condition worsens or changes unexpectedly, if not improving as expected, or if other problems arise. Specifically return if pain, vomiting, bleeding, breathing difficulty or fever. Your Current Medications: CONTINUE TAKING THE FOLLOWING MEDICATIONS: ALPRAZolam Oral : 1 mg 3x a day. Ascorbic Acid Oral. Aspirin Oral : Tablet 325 mg, 1 tablet daily. Cholecalciferol Oral. Colace Oral. Colchicine Oral : 0.6 mg. Flunisolide Nasal. Gemfibrozil Oral : 600 mg. Levothyroxine Sodium Oral : 100 mcg. Metoprolol Succinate ER Oral : Tablet Extended Release 24 Hour 25 mg, 1 tablet daily. MiraLax Oral. Naloxone HCl Injection : 1 spray. Nitroglycerin Sublingual. OxyCODONE HCl Oral : 30 mg 4x a day. Red Yeast Rice Oral. Zetia Oral : Tablet 10 mg, 1 tablet. Prescription Medications: Hydroxyzine 50 mg: take 1 orally every 8 hours. Dispense thirty (30). No refill. (as needed for allergy symptoms) OTC Medications: Claritin (available over the counter): take according to label instructions. Follow-up: Return to the emergency department as needed. Follow up with your doctor in three days. Reason for referral: recheck today's concerns. Summary of care provided to patient via paper. Screening today revealed the patient's blood pressure to be in the normal range. The patient should follow up with a primary care provider for blood pressure management. Understanding of the discharge instructions verbalized by patient. ADDITIONAL INFORMATION Abrasions Abrasions are skin scrapes. Their treatment depends on how large and deep the abrasion is. Home Care: If you were given a bandage, change it once a day. If your bandage sticks to the wound, soak it in warm water until it loosens. Wash the area with soap and water to remove all the cream/ointment. You may do this in a sink, under a tub faucet or shower. Rinse off the soap and pat dry with a clean towel. Reapply cream/ointment according to your doctor's instructions. This will prevent infection and help prevent the bandage from sticking. Cover the wound with a fresh non-stick bandage (Telfa). Repeat steps 1 to 4 daily, or as directed by your doctor. If the bandage becomes wet or dirty, change it as soon as possible. You may use acetaminophen (Tylenol) or ibuprofen (Motrin, Advil) to control pain, unless another pain medicine was prescribed. [ NOTE : If you have chronic liver or kidney disease or ever had a stomach ulcer or GI bleeding, talk with your doctor before using these medicines.] Do not use ibuprofen in children under six months of age. Follow Up with your physician or this facility as directed by our staff. Most skin wounds heal within ten days. However, an infection may occur despite proper treatment. Therefore, look for the early signs of infection listed below. Get Prompt Medical Attention if any of the following occur: Increasing pain in the wound Increasing redness or swelling Pus coming from the wound Fever of 100.4F (38C) or higher, or as directed by your healthcare provider Seasonal Allergy Seasonal Allergy is also called Hay Fever. It may occur after a person is exposed to pollens released from grasses, weeds, trees and shrubs. This type of allergy occurs during the spring and summer when the pollen contacts the lining of the nose, eyes, eyelids, sinuses and throat. This causes discharge from the eyes or nose. Violent sneezing, nasal congestion, post-nasal drip, itching of the eyes, nose, throat and mouth, scratchy throat, and dry cough may also occur. Home Care: Seasonal allergy cannot be cured, but symptoms can be reduced by these measures: Avoid or reduce exposure to the allergen as much as you can: Stay indoors on hot windy days of pollen season. Keep windows and doors closed. Use an air conditioner with an electrostatic filter. DECONGESTANT pills and sprays (Sudafed, NeoSynephrine, Afrin) reduce tissue swelling and watery discharge. If you use the sprays too much, the symptoms may get worse. Do not use these more often than recommended. Do not use decongestants in children unless advised by your doctor. ANTIHISTAMINES block the release of histamine during the allergic response. They work better when taken BEFORE symptoms develop. Unless a prescription antihistamine was prescribed, you may take Claritin (loratadine). This is an judb-edf-zjvkuay non-sedating antihistamine. It does not make you drowsy. STEROID nasal sprays (Beconase, Vancenase, Nasalide) or oral steroids (Prednisone) may also be prescribed. These help to reduce the local inflammation that adds to the allergic response. If you have ASTHMA, pollen season may make your asthma symptoms worse. It is important that you use your asthma medicines as directed during this time to prevent or treat attacks. Some persons with ASTHMA have asthma symptoms that get worse when they take ANTIHISTAMINES. This is due to the drying effect on the lungs. If you notice this, stop the antihistamines, drink extra fluids and notify your doctor. If you have sinus congestion or drainage, a saline nasal rinse may give relief. A saline nasal rinse lessens the swelling and clears excess mucus. This allows sinuses to drain. Prepackaged kits are sold at most drug stores. These contain pre-mixed salt packets and an irrigation device. Follow Up with your doctor or as directed by our staff if your symptoms do not improve with the treatment advised. Get Prompt Medical Attention if any of the following occur: Facial, ear or sinus pain; colored drainage from the nose Severe headache Fever of 100.4F (38C) or higher, or as directed by your healthcare provider Wheezing or trouble breathing (If you know you have asthma, return if your asthma symptoms do not respond to the usual doses of your medicine) Cough with lots of colored sputum (mucus) Hydroxyzine Pamoate Oral capsule What is this medicine? HYDROXYZINE (francisco j DROX i zeen) is an antihistamine. This medicine is used to treat allergy symptoms. It is also used to treat anxiety and tension. This medicine can be used with other medicines to induce sleep before surgery. How should I use this medicine? Take this medicine by mouth with a full glass of water. Follow the directions on the prescription label. You may take this medicine with food or on an empty stomach. Take your medicine at regular intervals. Do not take your medicine more often than directed. Talk to your recordings librarian regarding the use of this medicine in children. Special care may be needed. While this drug may be prescribed for children as young as 6 years of age for selected conditions, precautions do apply. Patients over 65 years old may have a stronger reaction and need a smaller dose. What side effects may I notice from receiving this medicine? Side effects that you should report to your doctor or health healthcare consultant as soon as possible: fast or irregular heartbeat difficulty passing urine seizures slurred speech or confusion tremor Side effects that usually do not require medical attention (report to your doctor or health healthcare consultant if they continue or are bothersome): constipation drowsiness fatigue headache stomach upset What may interact with this medicine? alcohol barbiturate medicines for sleep or seizures medicines for colds, allergies medicines for depression, anxiety, or emotional disturbances medicines for pain medicines for sleep muscle relaxants What if I miss a dose? If you miss a dose, take it as soon as you can. If it is almost time for your next dose, take only that dose. Do not take double or extra doses. Where should I keep my medicine? Keep out of the reach of children. Store at room temperature between 15 and 30 degrees C (59 and 86 degrees F). Keep container tightly closed. Throw away any unused medicine after the expiration date. What should I tell my health care provider before I take this medicine? They need to know if you have any of these conditions: any chronic illness difficulty passing urine glaucoma heart disease kidney disease liver disease lung disease an unusual or allergic reaction to hydroxyzine, cetirizine, other medicines, foods, dyes, or preservatives or trying to get breast-feeding What should I watch for while using this medicine? Tell your doctor or health healthcare consultant if your symptoms do not improve. You may get drowsy or dizzy. Do not drive, use machinery, or do anything that needs mental alertness until you know how this medicine affects you. Do not stand or sit up quickly, especially if you are an older patient. This reduces the risk of dizzy or fainting spells. Alcohol may interfere with the effect of this medicine. Avoid alcoholic drinks. Your mouth may get dry. Chewing sugarless gum or sucking hard candy, and drinking plenty of water may help. Contact your doctor if the problem does not go away or is severe. This medicine may cause dry eyes and blurred vision. If you wear contact lenses you may feel some discomfort. Lubricating drops may help. See your eye doctor if the problem does not go away or is severe. If you are receiving skin tests for allergies, tell your doctor you are using this medicine. You have been given the following additional information: Abrasion Seasonal Allergy Hydroxyzine Pamoate Oral capsule (Electronically signed by Carlos Lerma Dr. 12/23/2016 9:33)
--- NOTE | 2016-12-23 09:34 | ED MAR SUMMARY ---
..... Medication Administration Record [facility] [address] [place] [id number] Patient: PARISA YANEZ Visit ID: [id number] 76y, M Weight: 78.0 kg Height/Length: 75 in BMI: 21.5 ALLERGIES: Zolpidem, Uloric, Monosodium Glutamate, Robaxin, Fenofibrate, Allopurinol, Codeine, Naproxen, Niacin, OxyContin, Statins
--- NOTE | 2016-12-23 09:34 | ED MED RECONCILIATION SUMMARY ---
Patient: PARISA YANEZ Medication Reconciliation Report [facility] VisitID: [id number] [place] [address] 76y, M Registration Date/Time: 12/20/2016 Weight: 78.0 kg Height/Length: 75 in. BMI: 21.5 ALLERGIES: Allopurinol, Codeine, Fenofibrate, Monosodium Glutamate, Naproxen, Niacin, OxyContin, Robaxin, Statins, Uloric, Zolpidem The patient's Home Medications are listed below: CONTINUE TAKING THE FOLLOWING MEDICATIONS: ALPRAZolam Oral 1 mg, 3x a day Ascorbic Acid Oral Aspirin Oral (325 mg) 1 tablet, daily Cholecalciferol Oral Colace Oral Colchicine Oral 0.6 mg Flunisolide Nasal Gemfibrozil Oral 600 mg Levothyroxine Sodium Oral 100 mcg Metoprolol Succinate ER Oral (25 mg) 1 tablet, daily MiraLax Oral Naloxone HCl Injection 1 spray Nitroglycerin Sublingual OxyCODONE HCl Oral 30 mg, 4x a day Red Yeast Rice Oral Zetia Oral (10 mg) 1 tablet The source(s) of the original Home Medication information: patient The following Medications were given to the patient in the Emergency Department: None. The following Medications were prescribed to the patient: Claritin (available over the counter): take according to label instructions. -- Carlos Lerma Dr. Hydroxyzine 50 mg: take 1 orally every 8 hours. Dispense thirty (30). No refill.(as needed for allergy symptoms) -- Carlos Lerma Dr.
--- NOTE | 2016-12-23 09:34 | ED MED RECONCILIATION SUMMARY ---
Patient: PARISA YANEZ Medication Reconciliation Report [facility] VisitID: [id number] [place] [address] 76y, M Registration Date/Time: 12/20/2016 Weight: 78.0 kg Height/Length: 75 in. BMI: 21.5 ALLERGIES: Allopurinol, Codeine, Fenofibrate, Monosodium Glutamate, Naproxen, Niacin, OxyContin, Robaxin, Statins, Uloric, Zolpidem The patient's Home Medications are listed below: CONTINUE TAKING THE FOLLOWING MEDICATIONS: ALPRAZolam Oral 1 mg, 3x a day Ascorbic Acid Oral Aspirin Oral (325 mg) 1 tablet, daily Cholecalciferol Oral Colace Oral Colchicine Oral 0.6 mg Flunisolide Nasal Gemfibrozil Oral 600 mg Levothyroxine Sodium Oral 100 mcg Metoprolol Succinate ER Oral (25 mg) 1 tablet, daily MiraLax Oral Naloxone HCl Injection 1 spray Nitroglycerin Sublingual OxyCODONE HCl Oral 30 mg, 4x a day Red Yeast Rice Oral Zetia Oral (10 mg) 1 tablet The source(s) of the original Home Medication information: patient The following Medications were given to the patient in the Emergency Department: None. The following Medications were prescribed to the patient: Claritin (available over the counter): take according to label instructions. -- Carlos Lerma Dr. Hydroxyzine 50 mg: take 1 orally every 8 hours. Dispense thirty (30). No refill.(as needed for allergy symptoms) -- Carlos Lerma Dr.
== END 2016-12-20 17:28 | disposition home or self-care (01) ==
LOC: ED SRH 16:49
DX: S00.412A Abrasion of left ear, initial encounter (principal); X58.XXXA Exposure to other specified factors, initial encounter; Y93.9 Activity, unspecified; Y92.9 Unspecified place or not applicable; Y99.9 Unspecified external cause status; J30.2 Other seasonal allergic rhinitis; I10 Essential (primary) hypertension; I25.10 Atherosclerotic heart disease of native coronary artery without angina pectoris; Z79.82 Long term (current) use of aspirin; Z79.899 Other long term (current) drug therapy